=== PATIENT | female | born 1940 | race Caucasian/White ===

== ENCOUNTER 2020-05-23 19:57 | Observation (INO) ==
[2020-05-24] MEDS ORDERED: SODIUM CHLORIDE 0.9% 500 ML IV STA (00:46)
[2020-05-24] MEDS ORDERED: ONDANSETRON 4 MG/2 ML VIAL IV STA (00:46)
[2020-05-24] MEDS ORDERED: ONDANSETRON 4 MG/2 ML VIAL ONE (00:54)
[2020-05-24 01:10] LABS: Albumin 3.1 G/DL (3.4-5.0); Bilirubin,Total 0.5 MG/DL (0.2-1.0); Osmolality,Calculated 275.7 MOS/KG (273-304); Potassium 3.4 MMOL/L (3.5-5.1); Total Protein 8.8 G/DL (6.4-8.3)
[2020-05-24 01:11] LABS: Basophils % 0.8 % (0.0-0.8); Eosinophils % 0.3 % (0.00-10.9); Hematocrit 46.4 VOL% (35.7-47.0); Immature Granulocytes % 1.7 %; Immature Granulocytes Absolute 0.06 #; Lymphocytes # 1.3 10*3/uL (1.4-4.0); Lymphocytes % 34.4 % (21.3-54.2); Mean Corpuscular HGB Conc 32.3 GM/DL (32-36); Mean Corpuscular Volume 94.9 FL (87-102); Mean Platelet Volume 10.4 FL (9.6-12.0); Monocytes % 13.2 % (1.7-12.7); Neutrophils % 49.6 % (38.7-73.9); Platelet Count 188 T/CUMM (130-400); Red Blood Count 4.89 MC/CUMM (3.8-5.5); Red Cell Distribution Width 12.5 % (9.3-17.3); White Blood Count 3.6 T/CUMM (4-12)
[2020-05-24 01:20] LABS: INR 2.9; PT Patient Result 29.3 SECS (9.8-11.9)
[2020-05-24 01:26] LABS: Amylase 31 U/L (25-115)
[2020-05-24 01:27] LABS: Troponin I 0.058 NG/ML (0.00-0.045)
[2020-05-24] MEDS ORDERED: hydrALAZINE 20 MG/1 ML VIAL IV STA (01:45)
[2020-05-24] MEDS ORDERED: POTASSIUM CHLORIDE 20 MEQ TABLET PO STA (01:46)
[2020-05-24] MEDS ORDERED: DEXAMETHASONE 4 MG/1 ML VIAL MISC INJ STA (01:55)
[2020-05-24 02:16] LABS: Bilirubin,Urine Negative (Negative); Blood, Urine Negative (Negative); Glucose,Urine (UA) Negative (Negative); Hyaline Casts,Urine 28 /LPF (0-3); Ketones,Urine 5 mg/dL (Negative); Mucus,Urine Many /LPF (Occasional); Nitrite,Urine Negative (Negative); Protein,Urine 30 MG/DL; Squamous Epithelial Cell,Urine Occasional /HPF (0-10); Urine Appearance CLEAR (Clear); Urine Color Amber (Yellow); Urine Specific Gravity 1.024 (1.001-1.035); Urine Urobilinogen < 2.0 EU/DL (0.2-1.0); WBC,Urine 3 /HPF (0-6)
[2020-05-24 04:08] LABS: Band Neutrophils 2 % (0-10); Hypochromasia Slight; Lymphocytes 32 % (20-55); Segmented Neutrophils 52 % (50-85); Total Cells Counted 100
[2020-05-24] MEDS ORDERED: SODIUM CHLORIDE 0.9% 1,000 ML IV SCH (04:08)
[2020-05-24] MEDS ORDERED: GLUCAGON 1 MG VIAL IM PRN (04:08)
[2020-05-24] MEDS ORDERED: ONDANSETRON 4 MG/2 ML VIAL IV PRN (04:08)
[2020-05-24] MEDS ORDERED: DEXTROSE 50% 25 GM/50 ML VIAL IV PRN (04:08)
[2020-05-24] MEDS ORDERED: MORPHINE 4 MG/1 ML VIAL IV PRN (04:08)
[2020-05-24 04:09] LABS: Microcytosis Slight
[2020-05-24] MEDS: LEVOFLOXACIN INJ 500 MG in PREMIX 1 EACH IV SCH (04:50)
[2020-05-24] MEDS: INSULIN REGULAR 100 UNIT/ML SUBCUT SCH ×3 (05:40→18:28)
[2020-05-24] MEDS ORDERED: ZINC SULFATE 220 MG CAPSULE PO SCH (08:00)
[2020-05-24] MEDS ORDERED: lisinopriL 10 MG TABLET PO SCH (09:00)
[2020-05-24] MEDS: SODIUM CHLOR 0.9% KCL 20 MEQ 20 MEQ/1,000 ML BAG IV SCH ×2 (12:09→21:08)
[2020-05-24] MEDS: DEXAMETHASONE 4 MG/1 ML VIAL IV SCH ×3 (12:09→21:09)
[2020-05-24] MEDS: DOCUSATE SODIUM 100 MG CAPSULE PO SCH ×2 (12:09→21:09)
[2020-05-24] MEDS: glipiZIDE 10 MG TABLET PO SCH ×2 (12:10→21:09)
[2020-05-24] MEDS: METOPROLOL TARTRATE 50 MG TABLET PO SCH ×2 (12:10→21:09)
[2020-05-24] MEDS: CHOLECALCIFEROL 1,000 UNIT TABLET PO SCH (12:10)
[2020-05-24] MEDS: PANTOPRAZOLE 40 MG VIAL IV SCH (12:10)
[2020-05-24] MEDS: ALBUTEROL INHALER 18 GM INH SCH ×3 (16:46→22:18)
[2020-05-24] MEDS ORDERED: WARFARIN 2 MG TABLET PO SCH (18:00)
[2020-05-24] MEDS: ACETAMINOPHEN 325 MG TABLET PO PRN (21:09)
[2020-05-25] MEDS: INSULIN REGULAR 100 UNIT/ML SUBCUT SCH ×4 (00:41→17:46)
[2020-05-25] MEDS: DEXAMETHASONE 4 MG/1 ML VIAL IV SCH ×2 (04:25→08:44)
[2020-05-25] MEDS: ALBUTEROL INHALER 18 GM INH SCH ×5 (04:25→18:30)
[2020-05-25] MEDS: LEVOFLOXACIN INJ 500 MG in PREMIX 1 EACH IV SCH (04:25)
[2020-05-25 06:13] LABS: Basophils % 0.5 % (0.0-0.8); Hematocrit 42.4 VOL% (35.7-47.0); Hemoglobin 13.5 GM/DL (12.0-16.0); Immature Granulocytes % 1.4 %; Immature Granulocytes Absolute 0.03 #; Lymphocytes # 0.6 10*3/uL (1.4-4.0); Lymphocytes % 28.5 % (21.3-54.2); Mean Corpuscular HGB Conc 31.8 GM/DL (32-36); Mean Corpuscular Volume 96.1 FL (87-102); Mean Platelet Volume 10.9 FL (9.6-12.0); Monocytes % 8.4 % (1.7-12.7); Neutrophils % 61.2 % (38.7-73.9); Platelet Count 149 T/CUMM (130-400); Red Blood Count 4.41 MC/CUMM (3.8-5.5); Red Cell Distribution Width 12.2 % (9.3-17.3); White Blood Count 2.1 T/CUMM (4-12)
[2020-05-25 06:42] LABS: Risk Ratio 1.8
[2020-05-25 06:48] LABS: Albumin 2.5 G/DL (3.4-5.0); Calcium 8.5 MG/DL (8.5-10.1); Osmolality,Calculated 288.3 MOS/KG (273-304); Potassium 4.1 MMOL/L (3.5-5.1); Total Protein 7.7 G/DL (6.4-8.3)
[2020-05-25 08:21] LABS: INR 4.7
[2020-05-25] MEDS: CHOLECALCIFEROL 1,000 UNIT TABLET PO SCH (08:43)
[2020-05-25] MEDS: METOPROLOL TARTRATE 50 MG TABLET PO SCH ×2 (08:43→21:42)
[2020-05-25] MEDS: lisinopriL 20 MG TABLET PO SCH (08:44)
[2020-05-25] MEDS: amLODIPine 2.5 MG TABLET PO SCH (08:44)
[2020-05-25] MEDS: glipiZIDE 10 MG TABLET PO SCH ×2 (08:44→21:42)
[2020-05-25] MEDS: hydroCHLOROthiazide 25 MG TABLET PO SCH (08:44)
[2020-05-25] MEDS: DOCUSATE SODIUM 100 MG CAPSULE PO SCH ×2 (08:44→21:42)
[2020-05-25] MEDS: PANTOPRAZOLE 40 MG VIAL IV SCH (08:45)
[2020-05-25] MEDS: SODIUM CHLOR 0.9% KCL 20 MEQ 20 MEQ/1,000 ML BAG IV SCH ×3 (08:46→17:00)
[2020-05-25] MEDS ORDERED: AZITHROMYCIN 250 MG TABLET PO ONE (13:19)
[2020-05-25] MEDS ORDERED: DEXAMETHASONE 4 MG/1 ML VIAL IV SCH ×2 (13:30→21:00)
[2020-05-25] MEDS ORDERED: cefTRIAXone 1,000 MG in SYRINGE 1 EACH IV SCH (14:00)
[2020-05-25] MEDS: ACETAMINOPHEN 325 MG TABLET PO PRN (21:43)
[2020-05-26] MEDS: ALBUTEROL INHALER 18 GM INH SCH ×5 (01:40→12:39)
[2020-05-26] MEDS: INSULIN REGULAR 100 UNIT/ML SUBCUT SCH ×2 (01:40→06:33)
[2020-05-26 07:03] LABS: Basophils % 0.5 % (0.0-0.8); Hematocrit 54.9 VOL% (35.7-47.0); Hemoglobin 17.7 GM/DL (12.0-16.0); Immature Granulocytes % 0.5 %; Immature Granulocytes Absolute 0.03 #; Lymphocytes # 0.5 10*3/uL (1.4-4.0); Lymphocytes % 7.7 % (21.3-54.2); Mean Corpuscular HGB Conc 32.2 GM/DL (32-36); Mean Platelet Volume 10.6 FL (9.6-12.0); Monocytes % 6.3 % (1.7-12.7); Platelet Count 133 T/CUMM (130-400); Red Blood Count 5.72 MC/CUMM (3.8-5.5); Red Cell Distribution Width 12.3 % (9.3-17.3); White Blood Count 6.4 T/CUMM (4-12)
[2020-05-26 07:05] LABS: Calcium 9.1 MG/DL (8.5-10.1); Osmolality,Calculated 277.8 MOS/KG (273-304); Potassium 3.9 MMOL/L (3.5-5.1)
[2020-05-26 07:19] LABS: Band Neutrophils 3 % (0-10); Hypochromasia Slight; Lymphocytes 8 % (20-55); Microcytosis Slight; Segmented Neutrophils 84 % (50-85); Total Cells Counted 100
[2020-05-26 07:20] LABS: Ovalocytes Slight; Platelet Estimate Adequate
[2020-05-26] MEDS ORDERED: AZITHROMYCIN 250 MG TABLET PO SCH (09:00)
[2020-05-26] MEDS: SODIUM CHLOR 0.9% KCL 20 MEQ 20 MEQ/1,000 ML BAG IV SCH (09:11)
[2020-05-26] MEDS: PANTOPRAZOLE 40 MG VIAL IV SCH (09:29)
[2020-05-26] MEDS: glipiZIDE 10 MG TABLET PO SCH (09:57)
[2020-05-26] MEDS: CHOLECALCIFEROL 1,000 UNIT TABLET PO SCH (09:57)
[2020-05-26] MEDS: lisinopriL 20 MG TABLET PO SCH (09:57)
[2020-05-26] MEDS: amLODIPine 2.5 MG TABLET PO SCH (09:57)
[2020-05-26] MEDS: DOCUSATE SODIUM 100 MG CAPSULE PO SCH (09:57)
[2020-05-26] MEDS: hydroCHLOROthiazide 25 MG TABLET PO SCH (09:58)
[2020-05-26] MEDS: METOPROLOL TARTRATE 50 MG TABLET PO SCH (09:58)
[2020-05-26 10:54] LABS: PT Patient Result 49.6 SECS (9.8-11.9)
[2020-05-26 11:59] VITALS: BP 156/74
== END 2020-05-26 11:54 | disposition home or self-care (01) ==
LOC: N.ED 19:57 → N.2E 19:57
PROVIDERS: ADMIT Family Medicine; ATTEND Family Medicine